=== PATIENT | male | born 1995 | race Caucasian/White ===

== ENCOUNTER 2018-08-22 12:43 | Emergency (ER) | payer SELFPAY ==
[~2018-08-22] VITALS: Ht 175.3 cm; Wt 54.4 kg
--- OUTSIDE RECORDS SUMMARY | 2018-08-22 12:58 | XMS REPORT | Continuity of Care Document ---
Author Author [facility] Address Unknown Phone Unavailable Allergies Active Description Code Type Severity Reaction Onset Reported/Identified Relationship to Patient Clinical Status Yes NO NAME AVAILABLE 31295 DRUG N/ A N/A Yes NO NAME AVAILABLE [id number] DRUG N/ A N/A Yes IODINATED DIAGNOSTIC AGENTS 16 Drug Class Low Rash 04/21/2017 04/21/2017 Medications Medication Packaging Start Date Stop Date Route Dosage Sig ALUM T MAG HYDROXIDE-SIMETH 200-200-20 MG/5ML PO SUSP 04/16/2017 Oral 30 4 TIMES DAILY PRN TRAZODONE HCL 100 MG PO TABS 12/2016 Oral 100 BEDTIME PRN OLANZAPINE 10 MG PO TBDP 2016 Oral 10 2 TIMES DAILY PRN ACETAMINOPHEN 325 MG PO TABS 12/2016 Oral 650 EVERY 6 HOURS PRN NICOTINE POLACRILEX 2 MG MT GUM 04/16/2017 Oral 2 EVERY 1 HOUR PRN NICOTINE POLACRILEX 2 MG MT LOZG 04/16/2017 Oral 2 EVERY 1 HOUR PRN MAGNESIUM HYDROXIDE 400 MG/5ML PO SUSP 04/16/2017 Oral 30 DAILY PRN QUETIAPINE FUMARATE 25 MG PO TABS 04/16/2017 Oral 25 4 TIMES DAILY PRN NICOTINE 21 MG/24HR TD PT24 04/17 Transdermal 1 DAILY FLUOXETINE HCL 20 MG PO CAPS 01/2017 Oral 20 DAILY IOHEXOL 350 MG/ML IV SOLN 2016 Intravenous 70 ONCE NALOXONE HCL 0.4 MG/ML IJ SOLN Intravenous 0.1 PRN ACETAMINOPHEN 650 MG RE SUPP 02/2017 Rectal 650 EVERY 6 HOURS PRN ACETAMINOPHEN 10 MG/ML IV SOLN Intravenous 1000 EVERY 6 HOURS PRN ONDANSETRON HCL 4 MG/2ML IJ SOLN 04/18/2017 Intravenous 4 EVERY 4 HOURS PRN ACETAMINOPHEN 325 MG PO TABS 02/2017 Oral 650 EVERY 6 HOURS PRN ONDANSETRON 4 MG PO TBDP 2016 Oral 4 EVERY 4 HOURS PRN [id number] PERTUSSIS 5-2-15.5 LF-MCG/0.5 IM SUSP 04/18/2017 Intramuscular 0.5 ONCE SENNOSIDES-DOCUSATE SODIUM 8.6-50 MG PO TABS 04/18/2017 Oral 2 2 TIMES DAILY ENOXAPARIN SODIUM 30 MG/0.3ML SC SOLN 04/18/2017 Subcutaneous 30 2 TIMES DAILY FAMOTIDINE IN NACL 20-0.9 MG/50ML-% IV SOLN 04/18/2017 Intravenous 20 2 TIMES DAILY FAMOTIDINE 20 MG PO TABS 2016 Oral 20 2 TIMES DAILY BACITRACIN ZINC 500 UNIT/GM EX OINT 04/18/2017 Topical 2 TIMES DAILY TRAZODONE HCL 100 MG PO TABS 02/2017 Oral 100 BEDTIME PRN OLANZAPINE 10 MG PO TBDP 2016 Oral 10 2 TIMES DAILY PRN QUETIAPINE FUMARATE 25 MG PO TABS 04/18/2017 Oral 25 4 TIMES DAILY PRN ALUM T MAG HYDROXIDE-SIMETH 200-200-20 MG/5ML PO SUSP 04/18/2017 Oral 30 4 TIMES DAILY PRN MAGNESIUM HYDROXIDE 400 MG/5ML PO SUSP 04/18/2017 Oral 30 DAILY PRN ACETAMINOPHEN 325 MG PO TABS 02/2017 Oral 650 EVERY 6 HOURS PRN NICOTINE POLACRILEX 2 MG MT GUM 04/18/2017 Oral 2 EVERY 1 HOUR PRN NICOTINE POLACRILEX 2 MG MT LOZG 04/18/2017 Oral 2 EVERY 1 HOUR PRN NICOTINE 21 MG/24HR TD PT24 04/19 Transdermal 1 DAILY FLUOXETINE HCL 20 MG PO CAPS 03/2017 Oral 20 DAILY RISPERIDONE 1 MG PO TABS 2016 Oral 1 2 TIMES DAILY DIPHENHYDRAMINE HCL 25 MG PO CAPS 04/19/2017 Oral 25 3 TIMES DAILY PRN HYDROCORTISONE 1 % EX CREA 2016 Topical 2 TIMES DAILY HYDROCORTISONE 1 % EX CREA 2016 Topical 2 TIMES DAILY PRN DIPHENHYDRAMINE HCL 25 MG PO CAPS 04/20/2017 Oral 50 3 TIMES DAILY PRN HYDROXYZINE HCL 25 MG PO TABS 04/2017 Oral 25 3 TIMES DAILY PRN DIPHENHYDRAMINE HCL 25 MG PO CAPS 04/21/2017 Oral 50 2 TIMES DAILY IBUPROFEN 600 MG PO TABS 2016 Oral 600 EVERY 6 HOURS PRN DIPHENHYDRAMINE HCL 25 MG PO CAPS 04/21/2017 Oral 25 DAILY IBUPROFEN 600 MG PO TABS 2016 Oral 600 3 TIMES DAILY IBUPROFEN 600 MG PO TABS 2016 Oral 600 EVERY 6 HOURS PRN IBUPROFEN 400 MG PO TABS 2016 Oral 800 ONCE ACTIDOSE/SORBITOL 25 GM/120ML PO LIQD 05/07/2017 Oral 50 ONCE NICOTINE POLACRILEX 2 MG MT GUM 05/07/2017 Oral 2 EVERY 1 HOUR PRN NICOTINE POLACRILEX 2 MG MT LOZG 05/07/2017 Oral 2 EVERY 1 HOUR PRN ALUM T MAG HYDROXIDE-SIMETH 200-200-20 MG/5ML PO SUSP 05/07/2017 Oral 30 4 TIMES DAILY PRN TRAZODONE HCL 100 MG PO TABS Oral 100 BEDTIME PRN OLANZAPINE 10 MG PO TBDP 2016 Oral 10 2 TIMES DAILY PRN ACETAMINOPHEN 325 MG PO TABS Oral 650 EVERY 6 HOURS PRN MAGNESIUM HYDROXIDE 400 MG/5ML PO SUSP 05/07/2017 Oral 30 DAILY PRN NICOTINE 21 MG/24HR TD PT24 05/08 Transdermal 1 DAILY HYDROXYZINE HCL 25 MG PO TABS Oral 50 2 TIMES DAILY PALIPERIDONE ER 3 MG PO TB24 Oral 3 DAILY LURASIDONE HCL 40 MG PO TABS Oral 40 DAILY WITH DINNER PERMETHRIN 1 % EX LIQD 2016 Topical ONCE PERMETHRIN 1 % EX LIQD 2016 Topical ONCE PERMETHRIN 1 % EX LIQD 2016 Topical ONCE PALIPERIDONE ER 6 MG PO TB24 Oral 6 DAILY PALIPERIDONE PALMITATE 234 MG/1.5ML IM SUSP 05/10/2017 Intramuscular 234 ONCE KETOROLAC TROMETHAMINE 30 MG/ML IJ SOLN 05/20/2017 05/25/2017 Intravenous 30 ONCE SODIUM CHLORIDE 0.9 % IV BOLUS 05/21/2017 Intravenous 1000 BOLUS ONDANSETRON HCL 4 MG/2ML IJ SOLN 05/20/2017 Intravenous 4 ONCE [id number] 400-5-5000 EX OINT 05/23/2017 Topical ONCE HYDROXYZINE HCL 25 MG PO TABS Oral 25 ONCE Problems Date Dx Coded Attending Type Code Diagnosis Diagnosed By 04/17/2017 V 090385 Suicide Attempt RUTHIE MUNIZ 04/17/2017 P F33.2 Major depressive disorder, recurrent severe without psychotic features (HCC) CRISTY, RUTHIE 04/18/2017 ARGENTINA COUGHLIN M54.2 Cervicalgia ARGENTINA COUGHLIN 04/23/2017 ALEXANDREA MUNIZKILA V 390 Mood Instability CRISTY, RUTHIE 04/23/2017 TANALEXANDREA HARRISKILA P F33.2 Major depressive disorder, recurrent severe without psychotic features (HCC) CRISTY, RUTHIE 05/05/2017 ARABELLA HORAN V 261000 Chest Pain SCHIERARABELLA BETTS W 05/05/2017 ARABELLA HORAN V R07.82 Intercostal pain SCHARABELLA CORDERO 05/10/2017 ALEXANDREA MUNIZKILA V 788424 Drug Overdose CRISTY, RUTHIE 05/10/2017 BALBINAIzabelRUTHIE A F32.9 Major depressive disorder, single episode, unspecified TANKIMBERLY, RUTHIE 05/10/2017 TANJIALEXANDREA PaizRUTHIE P F33.2 Major depressive disorder, recurrent severe without psychotic features (HCC) CRISTY, RUTHIE 05/10/2017 TANALEXANDREA HARRISKILA V T65.92XA Toxic effect of unspecified substance, intentional self-harm, initial encounter (HCC) CRISTY RUTHIE 05/20/2017 CANAS, BARBIE K V 321506 Abdominal Pain CANAS, BARBIE K 05/20/2017 CANAS, BARBIE K V R10.9 Unspecified abdominal pain CANAS, BARBIE K 05/23/2017 FRANCIE DUGGAN V 618 Skin Lesion 05/23/2017 FRANCIE DUGGAN V S00.01XA Abrasion of scalp, initial encounter 05/25/2017 GROW, NANCY V 9 Anxiety GROW, NANCY 05/25/2017 GROW, NANCY V F32.9 Major depressive disorder, single episode, unspecified GROW, NANCY 05/25/2017 GROW, NANCY V F41.9 Anxiety disorder, unspecified GROW, NANCY 05/25/2017 GROW, NANCY V T14.8XXA Other injury of unspecified body region, initial encounter NANCY RUSSO 05/29/2017 AMY WEINSTEIN V 310891 Drug Overdose AMY WEINSTEIN 05/29/2017 AMY WEINSTEIN V F32.9 Major depressive disorder, single episode, unspecified AMY WEINSTEIN 05/29/2017 AMY WEINSTEIN V T14.91XA Suicide attempt, initial encounter AMY WEINSTEIN 05/29/2017 AMY WEINSTEIN V T50.902A Poisoning by unspecified drugs, medicaments and biological substances, intentional self-harm, initial encounter ([facility]) AMY WEINSTEIN Procedures There is no data. Results Test Result Range CBC WITH AUTO DIFFERENTIAL - 04/17/17 23:24 BASOPHILS RELATIVE PERCENT 0.5 % 0.0-2.5 EOSINOPHILS RELATIVE PERCENT 2.0 % <=5.0 HEMATOCRIT 44.2 % 38.8-50.0 HEMOGLOBIN 14.8 g/dL 13.5-17.5 LYMPHOCYTES RELATIVE PERCENT 25.3 % 22.0-49.0 MEAN CORPUSCULAR HEMOGLOBIN 30.0 pg 26.0-34.0 MEAN CORPUSCULAR HEMOGLOBIN CONC 33.5 g/dL 31.0-37.0 MEAN CORPUSCULAR VOLUME 89.5 fL 81.2-95.1 MONOCYTES RELATIVE PERCENT 7.2 % 2.0-9.0 NEUTROPHILS RELATIVE PERCENT 65.0 % 40.0-75.0 NUCLEATED RED BLOOD CELLS 0 /100 <=0 PLATELET COUNT 239 10E9/L 150-450 RED BLOOD CELL COUNT 4.94 10E12/L 4.32-5.72 RED CELL DISTRIBUTION WIDTH 13.1 % 11.8-15.6 4256541 9.4 10E9/L 3.5-10.5 5926183 2.38 10E9/L 0.90-2.90 7593242 0.68 10E9/L 0.30-0.90 2708337 0.19 10E9/L 0.05-0.50 4413469 6.12 10E9/L 1.70-7.00 7361219 0.05 10E9/L 0.00-0.30 2024560 0 % FIBRINOGEN - 04/17/17 23:24 FIBRINOGEN ACTIVITY 259 mg/dl 237-487 BASIC METABOLIC PANEL - 04/17/17 23:24 ANION GAP 7 BUN BLOOD 10 mg/dL 6-20 CALCIUM 9.4 mg/dL 8.7-10.5 CHLORIDE 104 mmol/L 99-111 CO2 28 mmol/L 20-36 CREATININE 0.69 mg/dL 0.60-1.20 EGFR > mL/min >59 GLUCOSE 103 mg/dL 74-106 POTASSIUM 4.3 mmol/L 3.6-4.9 SODIUM 139 mmol/L 136-145 ALCOHOL, SERUM - 04/17/17 23:24 ALCOHOL, SERUM < mg/dL <=10 TYPE AND SCREEN - 04/17/17 23:24 ABORH A POS ANTIBODY SCREEN NEG EXTRA LIGHT GREEN TOP - 04/17/17 23:24 1324 Extra tube in lab URINALYSIS WITH MICROSCOPIC - 04/18/17 01:24 APPEARANCE Clear BILIRUBIN UA Negative Negative COLOR Yellow GLUCOSE UA Negative Negative HEMOGLOBIN UA Negative Negative LEUKOCYTE ESTERASE UA Negative Negative NITRATE UA Negative Negative PH UA 7.5 5.0-8.0 PROTEIN UA Negative Negative RBC UA 0-3 /hpf 0-3 SPECIFIC GRAVITY UA 1.036 1.003-1.030 SQUAMOUS EPITHELIAL None Seen /hpf UROBILINOGEN UA 0.2 EU/dL 0.2 WBC UA 0-3 /hpf 0-3 [id number] Negative Negative CBC WITH AUTO DIFFERENTIAL - 04/18/17 08:18 BASOPHILS RELATIVE PERCENT 0.4 % 0.0-2.5 EOSINOPHILS RELATIVE PERCENT 2.4 % <=5.0 HEMATOCRIT 44.1 % 38.8-50.0 HEMOGLOBIN 14.6 g/dL 13.5-17.5 LYMPHOCYTES RELATIVE PERCENT 43.8 % 22.0-49.0 MEAN CORPUSCULAR HEMOGLOBIN 29.6 pg 26.0-34.0 MEAN CORPUSCULAR HEMOGLOBIN CONC 33.1 g/dL 31.0-37.0 MEAN CORPUSCULAR VOLUME 89.5 fL 81.2-95.1 MONOCYTES RELATIVE PERCENT 7.8 % 2.0-9.0 NEUTROPHILS RELATIVE PERCENT 45.6 % 40.0-75.0 NUCLEATED RED BLOOD CELLS 0 /100 <=0 PLATELET COUNT 234 10E9/L 150-450 RED BLOOD CELL COUNT 4.93 10E12/L 4.32-5.72 RED CELL DISTRIBUTION WIDTH 13.2 % 11.8-15.6 5781468 11.9 10E9/L 3.5-10.5 5611056 5.22 10E9/L 0.90-2.90 1195501 0.93 10E9/L 0.30-0.90 2374130 0.29 10E9/L 0.05-0.50 9637975 5.44 10E9/L 1.70-7.00 9274001 0.05 10E9/L 0.00-0.30 1279866 0 % COMPREHENSIVE METABOLIC PANEL - 04/18/17 08:18 ALBUMIN 4.1 g/dL 3.4-4.8 ALKALINE PHOSPHATASE 54 U/L 29-122 ALT 11 U/L 10-46 ANION GAP 7 AST 20 U/L 16-37 BILIRUBIN,TOTAL 0.3 mg/dL 0.0-1.2 BUN BLOOD 10 mg/dL 6-20 CALCIUM 9.2 mg/dL 8.7-10.5 CHLORIDE 104 mmol/L 99-111 CO2 27 mmol/L 20-36 CREATININE 0.71 mg/dL 0.60-1.20 EGFR > mL/min >59 GLUCOSE 100 mg/dL 74-106 POTASSIUM 3.7 mmol/L 3.6-4.9 PROTEIN TOTAL 6.5 g/dL 6.4-8.3 SODIUM 138 mmol/L 136-145 CBC WITH AUTO DIFFERENTIAL - 05/05/17 01:20 BASOPHILS RELATIVE PERCENT 0.7 % 0.0-2.5 EOSINOPHILS RELATIVE PERCENT 2.6 % <=5.0 HEMATOCRIT 43.1 % 38.8-50.0 HEMOGLOBIN 14.1 g/dL 13.5-17.5 LYMPHOCYTES RELATIVE PERCENT 45.2 % 22.0-49.0 MEAN CORPUSCULAR HEMOGLOBIN 29.5 pg 26.0-34.0 MEAN CORPUSCULAR HEMOGLOBIN CONC 32.7 g/dL 31.0-37.0 MEAN CORPUSCULAR VOLUME 90.2 fL 81.2-95.1 MONOCYTES RELATIVE PERCENT 7.0 % 2.0-9.0 NEUTROPHILS RELATIVE PERCENT 44.5 % 40.0-75.0 NUCLEATED RED BLOOD CELLS 0 /100 <=0 PLATELET COUNT 363 10E9/L 150-450 RED BLOOD CELL COUNT 4.78 10E12/L 4.32-5.72 RED CELL DISTRIBUTION WIDTH 13.0 % 11.8-15.6 3668125 13.4 10E9/L 3.5-10.5 2552740 6.05 10E9/L 0.90-2.90 2732602 0.94 10E9/L 0.30-0.90 7214784 0.35 10E9/L 0.05-0.50 5218206 5.95 10E9/L 1.70-7.00 8546196 0.09 10E9/L 0.00-0.30 8516806 0 % SCAN - 05/05/17 01:20 RBC MORPHOLOGY RBC morphology appears normal 5875910 Results confirmed by microscopic exam [id number] Few COMPREHENSIVE METABOLIC PANEL - 05/05/17 01:20 ALBUMIN 4.3 g/dL 3.4-4.8 ALKALINE PHOSPHATASE 65 U/L 29-122 ALT 12 U/L 10-46 ANION GAP 7 AST 20 U/L 16-37 BILIRUBIN,TOTAL 0.3 mg/dL 0.0-1.2 BUN BLOOD 10 mg/dL 6-20 CALCIUM 9.6 mg/dL 8.7-10.5 CHLORIDE 103 mmol/L 99-111 CO2 28 mmol/L 20-36 CREATININE 0.59 mg/dL 0.60-1.20 EGFR > mL/min >59 GLUCOSE 106 mg/dL 74-106 POTASSIUM 3.9 mmol/L 3.6-4.9 PROTEIN TOTAL 6.8 g/dL 6.4-8.3 SODIUM 138 mmol/L 136-145 TROPONIN I - 05/05/17 01:20 TROPONIN I < ng/mL 0.000-0.040 PT T APTT - 05/07/17 16:37 APTT 32.7 sec. 25.0-36.0 INR 1.00 INR PROTHROMBIN TIME 13.1 sec. 11.8-14.8 CBC WITH AUTO DIFFERENTIAL - 05/07/17 16:37 BASOPHILS RELATIVE PERCENT 0.6 % 0.0-2.5 EOSINOPHILS RELATIVE PERCENT 1.3 % <=5.0 HEMATOCRIT 41.9 % 38.8-50.0 HEMOGLOBIN 13.9 g/dL 13.5-17.5 LYMPHOCYTES RELATIVE PERCENT 35.1 % 22.0-49.0 MEAN CORPUSCULAR HEMOGLOBIN 29.7 pg 26.0-34.0 MEAN CORPUSCULAR HEMOGLOBIN CONC 33.2 g/dL 31.0-37.0 MEAN CORPUSCULAR VOLUME 89.5 fL 81.2-95.1 MONOCYTES RELATIVE PERCENT 8.5 % 2.0-9.0 NEUTROPHILS RELATIVE PERCENT 54.5 % 40.0-75.0 NUCLEATED RED BLOOD CELLS 0 /100 <=0 PLATELET COUNT 318 10E9/L 150-450 RED BLOOD CELL COUNT 4.68 10E12/L 4.32-5.72 RED CELL DISTRIBUTION WIDTH 13.2 % 11.8-15.6 9428103 9.6 10E9/L 3.5-10.5 8782621 3.35 10E9/L 0.90-2.90 0829676 0.81 10E9/L 0.30-0.90 4394739 0.12 10E9/L 0.05-0.50 3400249 5.21 10E9/L 1.70-7.00 6312369 0.06 10E9/L 0.00-0.30 4501887 0 % TSH (REFLEX FREE T4 IF ABNORMAL) - 05/07/17 16:37 TSH 1.124 uIU/mL 0.400-4.000 URINALYSIS, REFLEX CULTURE IF NEEDED - 05/07/17 17:40 APPEARANCE Clear BILIRUBIN UA Negative Negative COLOR Yellow GLUCOSE UA Negative Negative HEMOGLOBIN UA Negative Negative LEUKOCYTE ESTERASE UA Negative Negative NITRATE UA Negative Negative PH UA 7.0 5.0-8.0 PROTEIN UA Negative Negative RBC UA 0-3 /hpf 0-3 SPECIFIC GRAVITY UA 1.013 1.003-1.030 SQUAMOUS EPITHELIAL None Seen /hpf UROBILINOGEN UA 0.2 EU/dL 0.2 WBC UA 0-3 /hpf 0-3 2432600 Negative Negative 5081470 1 /lpf SALICYLATES - 05/07/17 17:40 SALICYLATE, URINE Negative CBC WITH AUTO DIFFERENTIAL - 05/20/17 17:12 BASOPHILS RELATIVE PERCENT 0.5 % 0.0-2.5 EOSINOPHILS RELATIVE PERCENT 1.5 % <=5.0 HEMATOCRIT 41.2 % 38.8-50.0 HEMOGLOBIN 13.9 g/dL 13.5-17.5 LYMPHOCYTES RELATIVE PERCENT 33.6 % 22.0-49.0 MEAN CORPUSCULAR HEMOGLOBIN 29.3 pg 26.0-34.0 MEAN CORPUSCULAR HEMOGLOBIN CONC 33.7 g/dL 31.0-37.0 MEAN CORPUSCULAR VOLUME 86.7 fL 81.2-95.1 MONOCYTES RELATIVE PERCENT 9.8 % 2.0-9.0 NEUTROPHILS RELATIVE PERCENT 54.6 % 40.0-75.0 NUCLEATED RED BLOOD CELLS 0 /100 <=0 PLATELET COUNT 299 10E9/L 150-450 RED BLOOD CELL COUNT 4.75 10E12/L 4.32-5.72 RED CELL DISTRIBUTION WIDTH 13.0 % 11.8-15.6 8363377 10.7 10E9/L 3.5-10.5 7394667 3.59 10E9/L 0.90-2.90 4607469 1.05 10E9/L 0.30-0.90 9543515 0.16 10E9/L 0.05-0.50 8172006 5.84 10E9/L 1.70-7.00 6909948 0.05 10E9/L 0.00-0.30 5682304 0 % COMPREHENSIVE METABOLIC PANEL - 05/20/17 17:12 ALBUMIN 4.4 g/dL 3.4-4.8 ALKALINE PHOSPHATASE 67 U/L 29-122 ALT 15 U/L 10-46 ANION GAP 7 AST 27 U/L 16-37 BILIRUBIN,TOTAL 1.2 mg/dL 0.0-1.2 BUN BLOOD 22 mg/dL 6-20 CALCIUM 9.9 mg/dL 8.7-10.5 CHLORIDE 103 mmol/L 99-111 CO2 30 mmol/L 20-36 CREATININE 0.82 mg/dL 0.60-1.20 EGFR > mL/min >59 GLUCOSE 89 mg/dL 74-106 POTASSIUM 3.8 mmol/L 3.6-4.9 PROTEIN TOTAL 7.1 g/dL 6.4-8.3 SODIUM 140 mmol/L 136-145 URINALYSIS, REFLEX CULTURE IF NEEDED - 05/20/17 17:25 APPEARANCE Clear BILIRUBIN UA Negative Negative COLOR Yellow GLUCOSE UA Negative Negative HEMOGLOBIN UA Negative Negative LEUKOCYTE ESTERASE UA Negative Negative NITRATE UA Negative Negative PH UA 5.5 5.0-8.0 PROTEIN UA Negative Negative RBC UA 0-3 /hpf 0-3 SPECIFIC GRAVITY UA 1.036 1.003-1.030 SQUAMOUS EPITHELIAL Rare /hpf UROBILINOGEN UA 1.0 EU/dL 0.2 WBC UA 0-3 /hpf 0-3, >50 9570237 1+ Negative 6662850 3 /lpf CBC WITH AUTO DIFFERENTIAL - 05/29/17 14:20 BASOPHILS RELATIVE PERCENT 0.9 % 0.0-2.5 EOSINOPHILS RELATIVE PERCENT 3.2 % <=5.0 HEMATOCRIT 43.8 % 38.8-50.0 HEMOGLOBIN 13.9 g/dL 13.5-17.5 LYMPHOCYTES RELATIVE PERCENT 27.7 % 22.0-49.0 MEAN CORPUSCULAR HEMOGLOBIN 29.0 pg 26.0-34.0 MEAN CORPUSCULAR HEMOGLOBIN CONC 31.7 g/dL 31.0-37.0 MEAN CORPUSCULAR VOLUME 91.3 fL 81.2-95.1 MONOCYTES RELATIVE PERCENT 10.4 % 2.0-9.0 NEUTROPHILS RELATIVE PERCENT 57.8 % 40.0-75.0 NUCLEATED RED BLOOD CELLS 0 /100 <=0 PLATELET COUNT 308 10E9/L 150-450 RED BLOOD CELL COUNT 4.80 10E12/L 4.32-5.72 RED CELL DISTRIBUTION WIDTH 13.7 % 11.8-15.6 8200593 10.5 10E9/L 3.5-10.5 1170599 2.89 10E9/L 0.90-2.90 2324464 1.09 10E9/L 0.30-0.90 2269826 0.33 10E9/L 0.05-0.50 3354965 6.05 10E9/L 1.70-7.00 6145999 0.09 10E9/L 0.00-0.30 2444031 0 % COMPREHENSIVE METABOLIC PANEL - 05/29/17 14:20 ALBUMIN 4.3 g/dL 3.4-4.8 ALKALINE PHOSPHATASE 63 U/L 29-122 ALT 16 U/L 10-46 ANION GAP 9 AST 22 U/L 16-37 BILIRUBIN,TOTAL 0.3 mg/dL 0.0-1.2 BUN BLOOD 13 mg/dL 6-20 CALCIUM 9.6 mg/dL 8.7-10.5 CHLORIDE 103 mmol/L 99-111 CO2 26 mmol/L 20-36 CREATININE 0.67 mg/dL 0.60-1.20 EGFR > mL/min >59 GLUCOSE 101 mg/dL 74-106 POTASSIUM 4.6 mmol/L 3.6-4.9 PROTEIN TOTAL 6.9 g/dL 6.4-8.3 SODIUM 138 mmol/L 136-145 SALICYLATE LEVEL - 05/29/17 14:20 SALICYLATE < mg/dL 3-20 ACETAMINOPHEN LEVEL - 05/29/17 14:20 ACETAMINOPHEN LEVEL < ug/mL 10.0-30.0 ALCOHOL, SERUM - 05/29/17 14:20 ALCOHOL, SERUM < mg/dL <=10 DRUG SCREEN (8) MEDICAL - 05/29/17 15:29 AMPHETAMINE Negative Cutoff 1000 ng/mL Negative BARBITURATES Negative Cutoff 200 ng/mL Negative BENZODIAZEPINES Negative Cutoff 200 ng/mL Negative COCAINE (METABOLITE) Negative Cutoff 300 ng/mL Negative MDMA URINE Negative Cutoff 500 ng/mL Negative OPIATES Negative Cutoff 300 ng/mL Negative PCP Negative Cutoff 25 ng/mL Negative PH UA 7.0 5.0-8.0 SPECIFIC GRAVITY UA 1.015 1.003-1.030 THC Negative Cutoff 50 ng/mL Negative [id number] Encounters ACCT No. Visit Date/Time Discharge Status Pt. Type Provider Facility Loc./Unit Complaint [id number] 05/29/2017 13:52:07 05/29/2017 16:56:00 DIS Emergency AMY WEINSTEIN [facility] [id number] 05/25/2017 20:11:48 05/25/2017 22:24:00 DIS Emergency NANCY RUSSO [facility] EMD [id number] 05/23/2017 10:11:24 05/23/2017 10:37:00 DIS Emergency FRANCIE DUGGAN [facility] [id number] 05/20/2017 16:49:14 05/20/2017 18:31:00 DIS Emergency BARBIE CANAS [facility] EMD [id number] 05/07/2017 15:51:04 05/10/2017 17:10:00 DIS Inpatient RUTHIE MUNIZ [facility] [id number] 05/04/2017 22:48:20 05/05/2017 02:23:00 DIS Emergency ARABELLA HORAN [facility] EMD [id number] 04/18/2017 18:22:00 04/23/2017 14:34:00 DIS Inpatient RUTHIE MUNIZ [facility] [id number] 04/17/2017 23:24:53 04/18/2017 18:10:00 DIS Inpatient ARGENTINA COUGHLIN [facility] [id number] 04/17/2017 23:39:04 Document Registration [id number] 04/16/2017 20:47:00 Document Registration [id number] 04/16/2017 20:47:00 04/17/2017 23:15:00 DIS Inpatient RUTHIE MUNIZ [facility] [id number] 04/16/2017 22:26:29 Document Registration
[2018-08-22] MEDS ORDERED: QUET200T PO (13:13)
[2018-08-22] MEDS ORDERED: LIDOCAINE PF 1% 5 ML (XYLOCAINE) AMP INJ ONE (14:00)
[2018-08-22] MEDS ORDERED: LIDOCAINE 1% INJ 20 ML 20 ML VIAL INJ ONE (14:00)
[2018-08-22] MEDS ORDERED: KETOROLAC 60 MG/2 ML VIAL IM ONE (14:00)
[2018-08-22] MEDS ORDERED: cefTRIAXone 1,000 MG/2.86 ml vial (IM ONLY) IM SCH (14:00)
--- NOTE | 2018-08-22 14:35 | ED EENT ---
History of Present Illness General Chief Complaint: Dental Problems/Pain Stated Complaint: RT SIDE FACE SWOLLEN Nursing Triage Note: PT HAS RIGHT SIDED FACIAL SWELLING FROM AN ABSCESSED TOOTH RIGHT UPPER MOLAR. Source: patient, EMS History of Present Illness Date Seen by Provider: Aug 22, 2018 Time Seen by Provider: 14:14 Initial Comments 23 yo M presents with facial swelling and pain to right cheek. He states he started having pain to the teeth in this area yesterday and overnight had swelling develop. The swelling has gone down some since he has been up during the day. He had tried a dose of Tylenol for pain but it did not give him any significant relief of his pain. He has not had any fever. He has pain with even light palpation over the cheek where he has swelling. He has had previous problems with teeth in this area and had a cap placed on a tooth here before. Since then he had not had problems until yesterday. He denies having any trauma to his face or teeth to cause the pain and swelling. Allergies and Home Medications Allergies Coded Allergies: No Known Drug Allergies (Unverified , 08/22/18) Home Medications Amoxicillin 500 Mg Tablet, 500 MG PO TID Prescribed by: MARCIA HIGGINS on 08/22/18 1621 Hydrocodone/Acetaminophen 1 Each Tablet, 1 TAB PO Q6H PRN for PAIN-SEVERE Prescribed by: MARCIA HIGGINS on 08/22/18 1621 Ibuprofen 800 Mg Tablet, 800 MG PO Q8H PRN for PAIN-MILD Prescribed by: MARCIA HIGGINS on 08/22/18 1621 Patient Home Medication List Home Medication List Reviewed: Yes Review of Systems Review of Systems Constitutional: No chills, No fever Eyes: No Symptoms Reported Ears: No Symptoms Reported Nose: no symptoms reported Mouth: pain, swelling Throat: no symptoms reported Respiratory: no symptoms reported Cardiovascular: no symptoms reported Gastrointestinal: No nausea, No vomiting Musculoskeletal: no symptoms reported Skin: no symptoms reported Neurological: No Symptoms Reported Past Fwyzogn-Xajwfc-Xtmuqt Hx Past Med/Social Hx: Reviewed Nursing Past Med/Soc Hx Patient Social History Alcohol Use: Denies Use Recreational Drug Use: No Smoking Status: Current Everyday Smoker Type Used: Cigarettes 2nd Hand Smoke Exposure: Yes Recent Foreign Travel: No Contact w/Someone Who Travel: No Recent Infectious Disease Expo: No Recent Hopitalizations: No Physical Abuse: No Sexual Abuse: No Mistreated: No Fear: No Seasonal Allergies Seasonal Allergies: No Past Medical History Surgeries: Yes Respiratory: No Cardiac: No Neurological: No Genitourinary: No Gastrointestinal: No Musculoskeletal: No Endocrine: No HEENT: No Cancer: No Psychosocial: Yes Depression Integumentary: No Physical Exam Vital Signs Vital Signs - First Documented 08/22/18 08/22/18 13:00 16:26 Temp 98.5 Pulse 110 Resp 18 B/P (MAP) 139/79 (99) Pulse Ox 97 O2 Delivery Room Air Height, Weight, BMI Height: 5'9.00" Weight: 120lbs. oz. [id number]; BMI Method:Stated General Appearance: WD/WN, no apparent distress Eyes: bilateral eye PERRL, bilateral eye EOMI Nose: normal inspection Mouth/Throat: dental tenderness, maxillary swelling (right side of face, swelling with tenderness to cheek in maxillary area), other (swelling to gums on right upper area with ) Neck: non-tender, full range of motion Cardiovascular: regular rate, rhythm Respiratory: lungs clear, normal breath sounds Neurologic/Psychiatric: alert, oriented x 3 Skin: normal color, warm/dry Procedures/Interventions Dental Procedures: dental block with 1% plain Lidocaine into the gums for a periosteal nerve block Progress/Results/Core Measures Results/Orders My Orders Orders - MARCIA HIGGINS MD Ceftriaxone For Im Use (Rocephin For Im (08/22/18 14:00) Lidocaine Pf 1% 5 Ml Injection (Xylocain (08/22/18 14:00) Ketorolac Injection (Toradol Injection) (08/22/18 14:00) Lidocaine 1% Inj 20 Ml (Xylocaine 1% Inj (08/22/18 14:00) Medications Given in ED Vital Signs/I&O Blood Pressure Mean: 99 Progress Progress Note : Progress Note give Rocephin 1 gm IM for infection with Toradol 60 mg IM for pain. Verbally consented for a dental block as well. While placing the 1% plain Lidocaine for the periosteal nerve block it did cause the abscess to start draining some as well. 2.5 mL of plain 1% Lidocaine was infiltrated in his gums along the maxillary area where he had swelling and pain to his teeth. Discharge on Amoxicillin and Ibuprofen and a few Hydrocodone for severe pain. Counseled to establish and follow up with a dentist as soon as possible for definitive care. Departure Impression Primary Impression: Dental caries extending into dentine Additional Impression: Dental abscess Disposition: 01 HOME, SELF-CARE Condition: Stable Departure-Patient Inst. Decision time for Depature: 16:15 Referrals: NO,LOCAL PHYSICIAN (PCP) Primary Care Physician Patient Instructions: Dental Pain (DC), Tooth Abscess (DC) Add. Discharge Instructions: Take antibiotics until gone. Follow up with Dentist as soon as possible. You may apply hot packs to the cheek for 10-15 minutes every 30 minutes to an hour this afternoon to help the infection come to a head and drain. Sleep with the head of your bead elevated for the next 2-3 nights to help keep the swelling from getting worse. All discharge instructions reviewed with patient and/or family. Voiced understanding. Scripts Hydrocodone/Acetaminophen (Hydrocodone-Acetamin 5-325 mg) 1 Each Tablet 1 TAB PO Q6H PRN for PAIN-SEVERE MDD 10 for 3 Days, #10 TAB 0 Refills Prov: MARCIA HIGGINS MD 08/22/18 Ibuprofen (Ibuprofen) 800 Mg Tablet 800 MG PO Q8H PRN for PAIN-MILD for 10 Days, #30 TAB 0 Refills Prov: MARCIA HIGGINS MD 08/22/18 Amoxicillin (Amoxicillin) 500 Mg Tablet 500 MG PO TID for dental infection for 10 Days, TAB Prov: MARCIA HIGGINS MD 08/22/18 MARCIA HIGGINS MD Aug 22, 2018 14:35
[2018-08-22] MEDS ORDERED: AMOX500T2 PO (16:21)
[2018-08-22] MEDS ORDERED: IBUP-1780 PO (16:21)
[2018-08-22] MEDS ORDERED: HYDR-3812 PO (16:21)
[2018-08-22 16:26] VITALS: BP 130/70
== END 2018-08-22 16:26 | disposition home or self-care (01) ==
LOC: ER FS 12:46
DX: K02.9 Dental caries, unspecified (principal); K04.7 Periapical abscess without sinus; F32.9 Major depressive disorder, single episode, unspecified; F17.210 Nicotine dependence, cigarettes, uncomplicated
CPT/HCPCS: 99284

== ENCOUNTER 2018-10-07 15:41 | Emergency (ER) | payer SELFPAY ==
[~2018-10-07] VITALS: Ht 172.7 cm; Wt 54.4 kg
[~2018-10-07 15:41] MED LIST: AMOX500T2 PO; HYDR-3812 PO; IBUP-1780 PO; QUET200T PO
--- OUTSIDE RECORDS SUMMARY | 2018-10-07 16:10 | XMS REPORT | Continuity of Care Document ---
Author Organization Unknown Address Unknown Allergies Active Description Code Type Severity Reaction Onset Reported/Identified Relationship to Patient Clinical Status Yes NO NAME AVAILABLE 06347 DRUG N/ A N/A Yes NO NAME AVAILABLE 53241 DRUG N/ A N/A Yes IODINATED DIAGNOSTIC AGENTS 16 Drug Class Low Rash 04/21/2017 04/21/2017 Yes No Known Drug Allergies [id number] Drug Allergy Unknown N/A 08/22/2018 Medications Medication Packaging Start Date Stop Date [...] 2016 Oral 4 EVERY 4 HOURS PRN [id number]-[id number]-VGBES PERTUSSIS 5-2-15.5 LF-MCG/0.5 IM SUSP 04/18/2017 Intramuscular [...] MG/2ML IJ SOLN 05/20/2017 Intravenous 4 ONCE AUIEXIMHSX-LBPQGTOL-[id number] 400-5-5000 EX OINT 05/23/2017 Topical ONCE HYDROXYZINE HCL 25 MG PO TABS Oral 25 ONCE Problems Date Dx Coded Attending Type Code Diagnosis Diagnosed By 04/17/2017 V 000602 Suicide Attempt ALEXANDREA MUNIZKILA 04/17/2017 P F33.2 Major depressive disorder, recurrent severe without psychotic features (HCC) ALEXANDREA MUNIZKILA 04/18/2017 ARGENTINA COUGHLIN M54.2 Cervicalgia [place] COUGHLIN 04/23/2017 CHARLESBOSSMANIzabel RUTHIE V 390 Mood Instability CRISTY, RUTHIE 04/23/2017 BALBINAIzabelRUTHIE P F33.2 Major depressive disorder, recurrent severe without psychotic features (HCC) CHARLESBOSSMANIzabel RUTHIE 05/05/2017 ARABELLA HORAN V 614800 Chest Pain SCHIERLING, ARABELLA W 05/05/2017 ARABELLA HORAN V R07.82 Intercostal pain SCHIERLING, ARABELLA W 05/10/2017 BALBINAIzabelRUTHIE V 802289 Drug Overdose CRISTY, RUTHIE 05/10/2017 BALBINAIzabelRUTHIE A F32.9 Major depressive disorder, single episode, unspecified CRISTY, RUTHIE 05/10/2017 RUTHIE MUNIZ P F33.2 Major depressive disorder, recurrent severe without psychotic features (HCC) CRISTY RUTHIE 05/10/2017 RUTHIE MUNIZ V T65.92XA Toxic effect of unspecified substance, intentional self-harm, initial encounter (HCC) CHARLESRUTHIE HARRIS 05/20/2017 CANAS, BARBIE K V 935713 Abdominal Pain CANAS, BARBIE K 05/20/2017 CANAS, [...] F41.9 Anxiety disorder, unspecified GROW, NANCY 05/25/2017 NANCY RUSSO V T14.8XXA Other injury of unspecified body region, initial encounter NANCY RUSSO 05/29/2017 AMY WEINSTEIN V 139282 Drug Overdose AMY WEINSTEIN 05/29/2017 AMY WEINSTEIN V F32.9 Major depressive disorder, single episode, unspecified AMY WEINSTEIN 05/29/2017 AMY WEINSTEIN V T14.91XA Suicide attempt, initial encounter AMY WEINSTEIN 05/29/2017 AMY WEINSTEIN V T50.902A Poisoning by unspecified drugs, medicaments and biological substances, intentional self-harm, initial encounter ([facility]) CORINNAAMY TORREZ 08/22/2018 MARCIA HIGGINS MD, Ot F17.210 NICOTINE DEPENDENCE, CIGARETTES, UNCOMPL 08/22/2018 MARCIA HIGGINS MD, Ot F32.9 MAJOR DEPRESSIVE DISORDER, SINGLE EPISOD 08/22/2018 MARCIA HIGGINS MD Ot K02.9 DENTAL CARIES, UNSPECIFIED 08/22/2018 MARCIA HIGGINS MD Ot K04.7 PERIAPICAL ABSCESS WITHOUT SINUS 08/22/2018 MARCIA HIGGINS MD Ot R22.0 LOCALIZED SWELLING, MASS AND LUMP, HEAD 08/25/2018 MARCIA HIGGINS MD, Ot F17.210 NICOTINE DEPENDENCE, CIGARETTES, UNCOMPL 08/25/2018 MARCIA HIGGINS MD, Ot F32.9 MAJOR DEPRESSIVE DISORDER, SINGLE EPISOD 08/25/2018 MARCIA HIGGINS MD Ot K02.9 DENTAL CARIES, UNSPECIFIED 08/25/2018 MARCIA HIGGINS MD Ot K04.7 PERIAPICAL ABSCESS WITHOUT SINUS 08/25/2018 MARCIA HIGGINS MD Ot R22.0 LOCALIZED SWELLING, MASS AND LUMP, HEAD Procedures There is no data. Results Test [...] RED CELL DISTRIBUTION WIDTH 13.1 % 11.8-15.6 1291412 9.4 10E9/L 3.5-10.5 9096033 2.38 10E9/L 0.90-2.90 7107630 0.68 10E9/L 0.30-0.90 6384568 0.19 10E9/L 0.05-0.50 3061345 6.12 10E9/L 1.70-7.00 6642844 0.05 10E9/L 0.00-0.30 4607022 0 % FIBRINOGEN - 04/17/17 23:24 FIBRINOGEN [...] EU/dL 0.2 WBC UA 0-3 /hpf 0-3 9735768 Negative Negative CBC WITH AUTO DIFFERENTIAL - [...] RED CELL DISTRIBUTION WIDTH 13.2 % 11.8-15.6 9446850 11.9 10E9/L 3.5-10.5 5791761 5.22 10E9/L 0.90-2.90 3536774 0.93 10E9/L 0.30-0.90 4612971 0.29 10E9/L 0.05-0.50 1395488 5.44 10E9/L 1.70-7.00 1467769 0.05 10E9/L 0.00-0.30 6822361 0 % COMPREHENSIVE METABOLIC PANEL - 04/18/17 [...] RED CELL DISTRIBUTION WIDTH 13.0 % 11.8-15.6 7470881 13.4 10E9/L 3.5-10.5 4061793 6.05 10E9/L 0.90-2.90 9529661 0.94 10E9/L 0.30-0.90 0680906 0.35 10E9/L 0.05-0.50 9061658 5.95 10E9/L 1.70-7.00 1178047 0.09 10E9/L 0.00-0.30 9766664 0 % SCAN - 05/05/17 01:20 RBC MORPHOLOGY RBC morphology appears normal 5254140 Results confirmed by microscopic exam [id number] Few COMPREHENSIVE METABOLIC PANEL - 05/05/17 01:20 [...] RED CELL DISTRIBUTION WIDTH 13.2 % 11.8-15.6 0873733 9.6 10E9/L 3.5-10.5 5825359 3.35 10E9/L 0.90-2.90 9907141 0.81 10E9/L 0.30-0.90 7278465 0.12 10E9/L 0.05-0.50 2750430 5.21 10E9/L 1.70-7.00 2380682 0.06 10E9/L 0.00-0.30 3095618 0 % TSH (REFLEX FREE T4 IF [...] EU/dL 0.2 WBC UA 0-3 /hpf 0-3 4442825 Negative Negative 7779984 1 /lpf SALICYLATES - 05/07/17 17:40 SALICYLATE, [...] RED CELL DISTRIBUTION WIDTH 13.0 % 11.8-15.6 9908068 10.7 10E9/L 3.5-10.5 0524705 3.59 10E9/L 0.90-2.90 6336020 1.05 10E9/L 0.30-0.90 5173824 0.16 10E9/L 0.05-0.50 5331792 5.84 10E9/L 1.70-7.00 3152460 0.05 10E9/L 0.00-0.30 9845090 0 % COMPREHENSIVE METABOLIC PANEL - 05/20/17 [...] 0.2 WBC UA 0-3 /hpf 0-3, >50 4548864 1+ Negative 5737874 3 /lpf CBC WITH AUTO DIFFERENTIAL - [...] RED CELL DISTRIBUTION WIDTH 13.7 % 11.8-15.6 0820898 10.5 10E9/L 3.5-10.5 8362898 2.89 10E9/L 0.90-2.90 3558722 1.09 10E9/L 0.30-0.90 9325236 0.33 10E9/L 0.05-0.50 9321603 6.05 10E9/L 1.70-7.00 2520923 0.09 10E9/L 0.00-0.30 5065608 0 % COMPREHENSIVE METABOLIC PANEL - 05/29/17 [...] 1.003-1.030 THC Negative Cutoff 50 ng/mL Negative 8840039 Encounters ACCT No. Visit Date/Time Discharge Status Pt. Type Provider Facility Loc./Unit Complaint [id number] 05/29/2017 13:52:07 05/29/2017 16:56:00 DIS Emergency EDUCATIONAL ADMINISTRATOR, AMY G [facility] EMD [id number] 05/25/2017 20:11:48 05/25/2017 22:24:00 DIS Emergency NANCY RUSSO [facility] [id number] 05/23/2017 10:11:24 05/23/2017 10:37:00 DIS Emergency FRANCIE DUGGAN [facility] [id number] 05/20/2017 16:49:14 05/20/2017 18:31:00 DIS Emergency BARBIE CANAS [facility] [id number] 05/07/2017 15:51:04 05/10/2017 17:10:00 [facility] [id number] 05/04/2017 22:48:20 05/05/2017 02:23:00 DIS Emergency TORSTENMOMO CORDERORENATA Salomon [facility] [id number] 04/18/2017 18:22:00 04/23/2017 14:34:00 DIS Inpatient RUTHIE MUNIZ [facility] [id number] 04/17/2017 23:24:53 04/18/2017 18:10:00 DIS Inpatient HOLLANDGRACIE ARGENTINA Martinez [facility] [id number] 04/17/2017 23:39:04 Document Registration [id number] 04/16/2017 20:47:00 Document Registration [id number] 04/16/2017 20:47:00 04/17/2017 23:15:00 DIS Inpatient RUTHIE MUNIZ [facility] [id number] 04/16/2017 22:26:29 Document Registration [id number] 08/22/2018 12:46:00 08/22/2018 16:26:00 DIS Emergency RONALDO GRAY, MARCIA Martinez [facility] ER FS RT SIDE FACE SWOLLEN
--- NOTE | 2018-10-07 16:19 | Diagnostic Imaging Report ---
INDICATION: Fall with right thumb pain. AP, oblique, lateral views of the right thumb are obtained. No fracture or acute bony abnormality seen. Joint spaces are unremarkable. IMPRESSION: Negative right thumb. Dictated by: Dictated on workstation # [id number]
[2018-10-07 16:23] VITALS: BP 120/68
--- NOTE | 2018-10-07 17:01 | ED Upper Extremity ---
General Chief Complaint: Upper Extremity Stated Complaint: TRIPPED AND FELL ON RT THUMB Source: patient Exam Limitations: no limitations History of Present Illness Date Seen by Provider: Oct 07, 2018 Time Seen by Provider: 17:15 Initial Comments Patient is a 23-year-old right-handed male who presents with right thumb pain/ injury. Patient states he was running last week and fell, and hyper extended his right thumb. Reports persistent pain, tenderness over the MCP joint with pain with range of motion. Patient with some swelling but no deformity. Denies wrist or hand pain. No other acute symptoms or complaints. Patient has not been evaluated for symptoms prior to today's ER visit. Onset: last week Pain/Injury Location: right thumb Method of Injury: direct blow Modifying Factors: Improves With Movement Allergies and Home Medications Allergies Coded Allergies: No Known Drug Allergies (Unverified , 08/22/18) Home Medications Amoxicillin 500 Mg Tablet, 500 MG PO TID Prescribed by: MARCIA HIGGINS on 08/22/18 1621 Hydrocodone/Acetaminophen 1 Each Tablet, 1 TAB PO Q6H PRN for PAIN-SEVERE Prescribed by: MARCIA HIGGINS on 08/22/18 1621 Ibuprofen 800 Mg Tablet, 800 MG PO Q8H PRN for PAIN-MILD Prescribed by: MARCIA HIGGINS on 08/22/18 1621 Patient Home Medication List Home Medication List Reviewed: Yes Review of Systems Constitutional: no symptoms reported EENTM: no symptoms reported Respiratory: no symptoms reported Musculoskeletal: joint pain Past Wvmvwzo-Sjjaze-Dtlwkq Hx Past Med/Social Hx: Reviewed Nursing Past Med/Soc Hx Patient Social History Type Used: Cigarettes 2nd Hand Smoke Exposure: Yes Recent Foreign Travel: No Contact w/Someone Who Travel: No Recent Hopitalizations: No Seasonal Allergies Seasonal Allergies: No Past Medical History Surgeries: Yes Respiratory: No Cardiac: No Neurological: No Genitourinary: No Gastrointestinal: No Musculoskeletal: No Endocrine: No HEENT: No Cancer: No Psychosocial: Yes Depression Integumentary: No Physical Exam Vital Signs Vital Signs - First Documented 10/07/18 15:50 Temp 97.3 Pulse 87 Resp 20 B/P (MAP) 120/68 (85) Pulse Ox 100 O2 Delivery Room Air Capillary Refill : Height, Weight, BMI Height: 5'9.00" Weight: 120lbs. oz. 54.327532ei; BMI Method:Stated General Appearance: no apparent distress Hand: limited ROM, soft tissue tenderness, swelling (R thumb MCP joint, no deformity or bruising.) Progress/Results/Core Measures Results/Orders My Orders Orders - MONICA ENNIS DO Thumb Spika (10/07/18 16:00) Finger(S) (10/07/18 16:00) Vital Signs/I&O 10/07/18 10/07/18 15:50 16:23 Temp 97.3 97.3 Pulse 87 87 Resp 20 20 B/P (MAP) 120/68 (85) 120/68 (85) Pulse Ox 100 100 O2 Delivery Room Air Departure Communication (Admissions) Right finger x-ray, no obvious displaced fracture. Patient placed in thumb spica recommend supportive care at piece be follow-up for reevaluation. Impression Primary Impression: Sprain of right thumb Disposition: 01 HOME, SELF-CARE Condition: Improved Departure-Patient Inst. Patient Instructions: Jammed Finger (DC) Add. Discharge Instructions: Please wear thumb spica splint and take ibuprofen 3 times daily for pain. Follow -up with PCP in 7-10 days for reevaluation. All discharge instructions reviewed with patient and/or family. Voiced understanding. MONICA ENNIS DO Oct 07, 2018 17:01
== END 2018-10-07 16:23 | disposition home or self-care (01) ==
LOC: EDUNIT# 15:41 → ER FS 15:43
DX: S63.601A Unspecified sprain of right thumb, initial encounter (principal); F32.9 Major depressive disorder, single episode, unspecified; Z77.22 Contact with and (suspected) exposure to environmental tobacco smoke (acute) (chronic)
CPT/HCPCS: 73140